=== PATIENT | female | born 1980 ===

== ENCOUNTER 2017-07-03 17:29 | Observation (INO) | payer MEDICAID ==
[2017-07-03 17:29] VITALS: BMI 32.8
[2017-07-03] MEDS ORDERED: HYDROmorphone 0.5 mg/0.5 ml ISec IVP STA (17:42)
[2017-07-03] MEDS ORDERED: Ciprofloxacin 400mg/200ml D5W 400 MG/200 ML BAG IVPB STA (17:43)
--- NOTE | 2017-07-03 17:44 | ED PDOC ---
Lower Extremity Pain/Injury Chief Complaint (Provider): FB in foot Additional Complaint(s): Pt is a 37 yo female, no PMH, presents to ED for FB in left foot. Pt stepped on metal screw, screw in place through boot. Unknown tetanus status. <Dedra Puga - Last Filed: 07/03/17 19:33> <Jasper Nuñez - Last Filed: 07/03/17 20:35> Time Seen by Provider: 07/03/17 17:39 Chief Complaint (Nursing): Lower Extremity Problem/Injury Supervising Attending Note - Attestation: I have personally seen and examined this patient.: Yes I have fully participated in the care of the patient.: Yes I have reviewed all pertinent clinical information, including history, physical exam and plan: Yes - Notes: Notes:: Pt. stepped on serrated nail. Podiatry at bedside. 100mg ketamine given to patient while on quality assurance monitor body, patient signed consent prior. FB removed successfully. Awaiting post-reduction films. <Jasper Nuñez - Last Filed: 07/03/17 20:35> Past Medical History Reviewed: Nursing Documentation, Vital Signs Vital Signs: Last Vital Signs Temp 98.3 F 07/03/17 17:32 Pulse 81 07/03/17 17:32 Resp 20 07/03/17 17:32 BP 121/92 H 07/03/17 17:32 Pulse Ox 99 07/03/17 17:32 - Medical History PMH: Migraine Denies: Chronic Kidney Disease - Surgical History Surgical History: No Surg Hx - Family History Family History: States: Unknown Family Hx - Living Arrangements Living Arrangements: With Family - Social History Current smoker - smoking cessation education provided: No Alcohol: Social Drugs: Denies <Dedra Puga - Last Filed: 07/03/17 19:33> Vital Signs: Last Vital Signs Temp 98.3 F 07/03/17 17:32 Pulse 81 07/03/17 17:32 Resp 20 07/03/17 17:32 BP 121/92 H 07/03/17 17:32 Pulse Ox 99 07/03/17 19:35 <Jasper Nuñez - Last Filed: 07/03/17 20:35> - Home Medications Home Medications: Ambulatory Orders Medication Instructions Recorded Acetaminophen/Butalbital/Caf 1 tab PO PRN PRN 12/23/14 [Fioricet] - Allergies Allergies/Adverse Reactions: Allergies Allergy/AdvReac Type Severity Reaction Status Date / Time No Known Allergies Allergy Verified 05/10/14 20:34 Review of Systems ROS Statement: Except As Marked, All Systems Reviewed And Found Negative Skin: Positive for: Other (FB) <Dedra Puga - Last Filed: 07/03/17 19:33> Physical Exam - Reviewed Nursing Documentation Reviewed: Yes Vital Signs Reviewed: Yes - Physical Exam Appears: Positive for: Well, Non-toxic, No Acute Distress Head Exam: Positive for: ATRAUMATIC, NORMAL INSPECTION, NORMOCEPHALIC Skin: Positive for: Normal Color, Warm, DRY Eye Exam: Positive for: EOMI, Normal appearance, PERRL ENT: Positive for: Normal ENT Inspection Neck: Positive for: Normal, Painless ROM Cardiovascular/Chest: Positive for: Regular Rate, Rhythm Respiratory: Positive for: CNT, Normal Breath Sounds Gastrointestinal/Abdominal: Positive for: Normal Exam, Bowel Sounds, Soft Back: Positive for: Normal Inspection Extremity: Positive for: Other ((+) FB noted, boot in place. unable to be removed by real estate underwriter.) Neurologic/Psych: Positive for: Alert, Oriented <Dedra Puga A - Last Filed: 07/03/17 19:33> - Laboratory Results Result Diagrams: 07/03/17 18:15 07/03/17 18:15 - ECG O2 Sat by Pulse Oximetry: 99 <Dedra Puga - Last Filed: 07/03/17 19:33> - Laboratory Results Result Diagrams: 07/03/17 18:15 07/03/17 18:15 <Jasper Nuñez - Last Filed: 07/03/17 20:35> Medical Decision Making Medical Decision Making: Podiatry consult obtained IV access established and treatment initiated with Dilaudid IV XR obtained, (+) FB identified. podiatry at bedside for procedure, see note Case endorsed to TAMMY Kelly at 1999 pending re-eval. <Dedra Puga A - Last Filed: 07/03/17 19:33> Disposition - Patient ED Disposition Is Patient to be Admitted: Transfer of Care - Disposition Disposition: Transfer of Care Disposition Time: 19:35 - POA Present On Arrival: None <Dedra Puga - Last Filed: 07/03/17 19:33> <Jasper Nuñez - Last Filed: 07/03/17 20:35> - Clinical Impression Clinical Impression: Foreign body in subcutaneous tissue - Disposition Condition: STABLE Forms: [facility] (Malay)
[2017-07-03] MEDS ORDERED: Ciprofloxacin 400mg/200ml D5W 400 MG/200 ML BAG IVPB ONE (18:02)
--- NOTE | 2017-07-03 18:25 | CP.PCM.CON ---
History of Present Illness - History of Present Illness History of Present Illness: Podiatry Consult for Dr. Sargent 37 y/o female seen in the ED for left foot pain secondary to trauma/stepping on a nail. Patient reports that at 5pm today as she was walking home, she stepped on a nail that punctured through her boots. Nail is seen in through boot and intact upon arrival. Denies falling or head trauma. She rates the pain 10/10 and describes the pain as a combination of pain: sharp, stabbing, numbing pain being localized to the left foot. She reports numbness to the left foot. She denies n/v/sob/cp/chills/f. Patient reports last time she ate or drink was at 1PM today. PMH: migraines PSH: hysterectomy in Aug 2016 SH: denies smoking or elicited drug use. socially drinks EtOH Meds: Fioricet ALL: NKDA FH: mother-none, father-none, daughter-DM Past Patient History - Past Medical History & Family History Past Medical History?: Yes - Past Social History Smoking Status: Never Smoked - CARDIAC Hx Cardiac Disorders: No - PULMONARY Hx Respiratory Disorders: No - NEUROLOGICAL Hx Migraine: Yes - RENAL Hx Chronic Kidney Disease: No - ENDOCRINE/METABOLIC Hx Endocrine Disorders: No - HEMATOLOGICAL/ONCOLOGICAL Hx Blood Disorders: No - INTEGUMENTARY Hx Dermatological Problems: No - MUSCULOSKELETAL/RHEUMATOLOGICAL Hx Musculoskeletal Disorders: No - GASTROINTESTINAL Hx Gastrointestinal Disorders: No - GENITOURINARY/GYNECOLOGICAL Hx Genitourinary Disorders: No - PSYCHIATRIC Hx Psychophysiologic Disorder: No - SURGICAL HISTORY Hx Surgeries: Yes Hx Dilation and Curettage: Yes (MAY 2006) - ANESTHESIA Hx Anesthesia: Yes Hx Anesthesia Reactions: No Hx Malignant Hyperthermia: No Meds Home Medications: Home Medication List Medication Instructions Recorded Confirmed Type Ciprofloxacin HCl [Cipro] 500 mg PO Q12 #14 tab 07/04/17 Rx Clindamycin [Cleocin] 300 mg PO Q6 #28 cap 07/04/17 Rx Lactobacillus Acidophilus [Bacid 1 cap PO BID #30 cap 07/04/17 Rx Acidophilus] traMADol [Ultram] 50 mg PO TID PRN #10 tab 07/04/17 Rx Allergies/Adverse Reactions: Allergies Allergy/AdvReac Type Severity Reaction Status Date / Time No Known Allergies Allergy Verified 05/10/14 20:34 - Medications Medications: Current Medications Ciprofloxacin (Cipro 400mg/200ml Dsw) 400 mg in 200 mls @ 200 mls/hr IVPB STAT STA PRN Reason: Protocol Stop: 07/03/17 18:42 Physical Exam - Constitutional Appears: Well, Non-toxic, No Acute Distress - Extremities Exam Additional comments: Able to perform examination secondary to cutting boot partially off Vasc: DP and PT 2/4 bilaterally, CFT <3 seconds x10 digits, localized non pitting edema noted to the LLE Ortho: Severe pain with movement to the L LE Neuro: protective and gross sensation intact Derm: Puncture lesion at the plantar aspect at 1st interspace secondary to screw puncture, measuring approximately 7cm long, L foot. No active bleeding noted upon arrival. - Neurological Exam Neurological exam: Alert, Oriented x3 Results - Vital Signs Recent Vital Signs: Last Vital Signs Temp 98.3 F 07/03/17 17:32 Pulse 81 07/03/17 17:32 Resp 20 07/03/17 17:32 BP 121/92 H 07/03/17 17:32 Pulse Ox 99 07/03/17 17:44 - Labs Result Diagrams: 07/03/17 18:15 07/03/17 18:15 Assessment & Plan - Assessment and Plan (Free Text) Assessment: 37 y/o female seen in the ED for painful left foot puncture lesion secondary to trauma/stepping on a nail with screw intact Plan: Patient examined and evaluated Labs,vitals, chart reviewed Discussed plan in detail with attending Dr. Sargent Tetanus dose given by ED X-rays reviewed- metallic screw noted to the 1st interspace left foot, no bony fracture noted 20 cc of 1:1 .5% marcaine plain and 2% lidocaine plain given in ankle block fashion Nitrous oxide given in ED. Unable to calm patient to remove screw. Decision to give Ketamine for moderate sedation. All risks, benefits, complications and alternative discussed. Patient agrees to sedation and removal of foreign body preceded in ED. Successful removal of screw without complications. Patient tolerated well Flushed with copious amounts of saline/betadine solution Dressed with dsd, abd, kerlix, PACO Post removal additional 7cc of 1:1 .5% marcaine plain and 2% lidocaine plain localized to the puncture X-rays s/p removal of hardware- results read by me- no hardware noted, no acute findings Recommends patient to be admitted for observation given high risk of infection Continue abx while in house: clindamycin and cipro IV PWB in surgical shoe with crutches as needed Patient to followup with Dr. Sargent in podiatry clinic at [facility] as outpatient Can be d/c with Cipro and Clindamycin PO as outpatient Thank you for the consult
[2017-07-03 18:33] LABS: BASO # 0.1 K/uL (0.0-0.2); BASO % 0.6 % (0.0-2.0); EOS # 0.2 K/uL (0.0-0.7); EOS % 1.8 % (0.0-4.0); HEMATOCRIT 30.4 % (34.0-47.0); LYMPH # 2.3 K/uL (1.0-4.3); LYMPH % 27.7 % (20.0-40.0); MEAN CELL VOLUME 72.3 fl (81.0-99.0); MEAN CORPUSCULAR HEMOGLOBIN 22.5 pg (27.0-31.0); MEAN CORPUSCULAR HGB CONC 31.1 g/dL (33.0-37.0); MEAN PLATELET VOLUME 9.9 fl (7.2-11.7); MONO # 0.6 K/uL (0.0-0.8); MONO % 7.3 % (0.0-10.0); NEUT # 5.2 K/uL (1.8-7.0); NEUT % 62.6 % (50.0-75.0); RED CELL DISTRIBUTION WIDTH 16.6 % (11.5-14.5); WHITE BLOOD COUNT 8.4 K/uL (4.8-10.8)
[2017-07-03 18:39] LABS: ALB/GLOB RATIO 1.3 (1.0-2.1); ALKALINE PHOSPHATASE 64 U/L (38-126); ALT/SGPT 32 U/L (9-52); AST/SGOT 18 U/L (14-36); BLOOD UREA NITROGEN 15 mg/dl (7-17); CALCIUM 9.2 mg/dL (8.4-10.2); CARBON DIOXIDE 21 mmol/L (22-30); CHLORIDE 108 mmol/L (98-107); GFR AFRICAN-AMERICAN > 60; GLUCOSE,RANDOM 105 mg/dL (65-105); POTASSIUM 3.7 MMOL/L (3.6-5.0); SODIUM 140 mmol/l (132-148); TOTAL PROTEIN 7.3 G/DL (6.3-8.2)
[2017-07-03 18:43] LABS: BILIRUBIN,TOTAL < 0.1 mg/dl (0.2-1.3)
[2017-07-03] MEDS ORDERED: Bupivacaine 0.5% Inj(30mL) IJ ONE (19:24)
[2017-07-03] MEDS ORDERED: Lidocaine 2% GEL TOP ONE (19:24)
[2017-07-03] MEDS ORDERED: Bupivacaine HCl 0.5% PF (30 ml) Inj ONE (19:26)
[2017-07-03] MEDS ORDERED: Povidone Iodine Topical 10% Sol ONE (19:27)
[2017-07-03] MEDS ORDERED: Lidocaine 2% Inj (20ml) ONE (19:27)
[2017-07-03] MEDS ORDERED: Absorbable Gelatin Sponge Size 12-7 ONE ×2 (19:45→19:47)
[2017-07-03] MEDS ORDERED: Ketamine 50 mg/ml Inj (10 ml) IV STA (20:08)
[2017-07-03] MEDS ORDERED: Sodium Chloride 0.9% 1,000 ML IV STA (22:44)
--- NOTE | 2017-07-03 22:55 | ED PDOC ---
- Laboratory Results Result Diagrams: 07/03/17 18:15 07/03/17 18:15 - ECG O2 Sat by Pulse Oximetry: 99 - Progress ED Course And Treament: Case endorsed to service writer advisor from Vivien MUNOZ pending podiatry consult Patient signed consent for ketamine administration for moderate sedation after unsuccessful attempts at removal Ketamine administered and podiatry able to successfully remove foreign body. Post removal films show no acute findings 22:45 Patient vomiting, IV zofran ordered As per podiatry recommendations, patient to be admitted for observation and IV cipro, and clindamycin Case discussed with Pascual Coleman RADIATION PROTECTION SPECIALIST for placement in observation. Disposition - Clinical Impression Clinical Impression: Foreign body in subcutaneous tissue - POA Present On Arrival: Falls Or Trauma - Disposition Disposition: Hospitalized as Observation Patient Disposition Time: 00:26 Condition: FAIR
[2017-07-03] MEDS ORDERED: Oxycodone/Acetaminophen 5/325 mg Tab PO PRN ×2 (23:42)
[2017-07-04] MEDS ORDERED: Apap-Butalbital-Caffeine 325-50-40mg Tab PO PRN (07:40)
--- NOTE | 2017-07-04 07:47 | CP.PCM.HP ---
History of Present Illness - History of Present Illness History of Present Illness: pt admitted after stepping on screw w/ left foot. this went through shoe and required conscious sedation for removal. per podiatry to be admit for obs for iv anbx. at present describes throbbing. large dsg in place. pod student at bedside. no f/c, n/v/d. no pain radiating up leg. all imaging and bw reviewed. Present on Admission - Present on Admission Any Indicators Present on Admission: No Review of Systems - Integumentary Integumentary: As Per HPI Past Patient History - Past Medical History & Family History Past Medical History?: Yes - Past Social History Smoking Status: Never Smoked - CARDIAC Hx Cardiac Disorders: No - PULMONARY Hx Respiratory Disorders: No - NEUROLOGICAL Hx Neurological Disorder: Yes Hx Migraine: Yes - HEENT Hx HEENT Problems: No - RENAL Hx Chronic Kidney Disease: No - ENDOCRINE/METABOLIC Hx Endocrine Disorders: No - HEMATOLOGICAL/ONCOLOGICAL Hx Blood Disorders: No - INTEGUMENTARY Hx Dermatological Problems: No - MUSCULOSKELETAL/RHEUMATOLOGICAL Hx Musculoskeletal Disorders: No Hx Falls: No - GASTROINTESTINAL Hx Gastrointestinal Disorders: No - GENITOURINARY/GYNECOLOGICAL Hx Genitourinary Disorders: No - PSYCHIATRIC Hx Psychophysiologic Disorder: No - SURGICAL HISTORY Hx Surgeries: Yes Hx Dilation and Curettage: Yes (MAY 2006) Hx Hysterectomy: Yes (Aug 2016) - ANESTHESIA Hx Anesthesia: Yes Hx Anesthesia Reactions: No Hx Malignant Hyperthermia: No Meds Home Medications: Home Medication List Medication Instructions Recorded Confirmed Type Ciprofloxacin HCl [Cipro] 500 mg PO Q12 #14 tab 07/04/17 Rx Clindamycin [Cleocin] 300 mg PO Q6 #28 cap 07/04/17 Rx Lactobacillus Acidophilus [Bacid 1 cap PO BID #30 cap 07/04/17 Rx Acidophilus] traMADol [Ultram] 50 mg PO TID PRN #10 tab 07/04/17 Rx Allergies/Adverse Reactions: Allergies Allergy/AdvReac Type Severity Reaction Status Date / Time No Known Allergies Allergy Verified 05/10/14 20:34 Physical Exam - Constitutional Appears: Well, Non-toxic, No Acute Distress - Head Exam Head Exam: ATRAUMATIC, NORMAL INSPECTION, NORMOCEPHALIC - Eye Exam Eye Exam: EOMI, Normal appearance, PERRL Pupil Exam: NORMAL ACCOMODATION, PERRL - ENT Exam ENT Exam: Mucous Membranes Moist, Normal Exam - Neck Exam Neck exam: Positive for: Normal Inspection - Respiratory Exam Respiratory Exam: Clear to Auscultation Bilateral, NORMAL BREATHING PATTERN - Cardiovascular Exam Cardiovascular Exam: REGULAR RHYTHM, RRR, +S1, +S2 - GI/Abdominal Exam GI & Abdominal Exam: Normal Bowel Sounds, Soft. absent: Tenderness - Extremities Exam Extremities exam: Positive for: full ROM, normal capillary refill, normal inspection, pedal pulses present Additional comments: dsg c/d/i, large and bulky as placed by podiatry - Back Exam Back exam: NORMAL INSPECTION - Neurological Exam Neurological exam: Alert, CN II-XII Intact, Normal Gait, Oriented x3, Reflexes Normal - Psychiatric Exam Psychiatric exam: Normal Affect, Normal Mood - Skin Skin Exam: Dry, Intact, Normal Color, Warm Results - Vital Signs Recent Vital Signs: Last Vital Signs Temp 98.1 F 07/04/17 07:31 Pulse 74 07/04/17 07:31 Resp 18 07/04/17 07:31 BP 123/74 07/04/17 07:31 Pulse Ox 98 07/04/17 07:31 - Labs Result Diagrams: 07/03/17 18:15 07/03/17 18:15 Labs: Laboratory Results - last 24 hr 07/03/17 07/03/17 18:15 18:15 WBC 8.4 RBC 4.20 Hgb 9.4 L Hct 30.4 L MCV 72.3 L MCH 22.5 L MCHC 31.1 L RDW 16.6 H Plt Count 247 MPV 9.9 Neut % (Auto) 62.6 Lymph % (Auto) 27.7 Piatt % (Auto) 7.3 Eos % (Auto) 1.8 Baso % (Auto) 0.6 Neut # 5.2 Lymph # 2.3 Piatt # 0.6 Eos # 0.2 Baso # 0.1 Sodium 140 Potassium 3.7 Chloride 108 H Carbon Dioxide 21 L Anion Gap 15 BUN 15 Creatinine 0.7 Est GFR ( Amer) > 60 Est GFR (Non-Af Amer) > 60 Random Glucose 105 Calcium 9.2 Total Bilirubin < 0.1 L AST 18 ALT 32 Alkaline Phosphatase 64 Total Protein 7.3 Albumin 4.1 Globulin 3.2 Albumin/Globulin Ratio 1.3 Assessment & Plan (1) DVT prophylaxis Assessment and Plan: scd and ae hose ambualtion Status: Acute (2) Foreign body in subcutaneous tissue Assessment and Plan: cipro/clinda bacid podiatry pain control ?? dc audie ortomorrow Status: Acute Decision To Admit - Pt Status Changed To: Hospital Disposition Of: Observation - . Bed Request Type: Med/Surg Admitting Physician: Candace Gibson
--- NOTE | 2017-07-04 08:29 | CP.PCM.PN ---
Subjective - Date & Time of Evaluation Date of Evaluation: 07/04/17 Time of Evaluation: 08:29 - Subjective Subjective: 37 y/o female seen at bedside this morning 1 day s/p foreign body removal from left foot. Pt states she is not having much pain today and wonders when she can go home. Pt says she does not remember much from the emergency room as she was put under sedation. Pt is in no acute distress and is resting comfortably in bed at time of visit. Pt denies F/C/N/V/CP/SOB. Objective - Vital Signs/Intake and Output Vital Signs (last 24 hours): Temp Pulse Resp BP Pulse Ox 98.1 F 74 18 123/74 98 07/04/17 07:31 07/04/17 07:31 07/04/17 07:31 07/04/17 07:31 07/04/17 07:31 - Medications Medications: Current Medications Acetaminophen (Tylenol 325mg Tab) 650 mg PO Q4 PRN PRN Reason: Pain, Mild (1-3) Acetaminophen/Butalbital/Caffeine (Fioricet) 1 tab PO PRN PRN PRN Reason: Headache Ciprofloxacin (Cipro 400mg/200ml Dsw) 400 mg in 200 mls @ 200 mls/hr IVPB Q12 KARINE PRN Reason: Protocol Clindamycin Phosphate 600 mg/ (Sodium Chloride) 54 mls @ 54 mls/hr IVPB Q8 KARINE PRN Reason: Protocol Last Admin: 07/04/17 02:25 Dose: Not Given Ibuprofen (Motrin Tab) 600 mg PO Q6 PRN PRN Reason: Pain, Mild (1-3) Lactobacillus Acidophilus (Bacid Acidophilus) 1 cap PO BID KARINE Morphine Sulfate (Morphine) 2 mg IVP Q4 PRN PRN Reason: Pain, severe (8-10) Ondansetron HCl (Zofran Inj) 4 mg IVP Q6 PRN PRN Reason: Nausea/Vomiting Tramadol HCl (Ultram) 50 mg PO Q6 PRN PRN Reason: Pain, moderate (4-7) Last Admin: 07/04/17 08:13 Dose: 50 mg - Labs Labs: 07/03/17 18:15 07/03/17 18:15 - Constitutional Appears: Well, Non-toxic, No Acute Distress - Extremities Exam Additional comments: Left lower extremity focused examination: Vasc: DP and PT 2/4, CFT <3 seconds x 5 digits, localized non pitting edema noted Neuro: Protective and gross sensation intact Derm: Circular punctate lesion noted to plantar aspect of midfoot, measuring approx 0.5cm in diameter. Wound is approx 0.2cm in depth at this time. No marisol wound erythema, no active drainage, no malodor, no tunneling, no fluctuance, no probe to bone. Ortho: Mild tenderness noted on palpation of plantar foot at site of screw puncture, now removed - Neurological Exam Neurological Exam: Alert, Awake, Oriented x3 - Psychiatric Exam Psychiatric exam: Normal Affect, Normal Mood Assessment and Plan - Assessment and Plan (Free Text) Assessment: 37 y/o female 1 day s/p removal of foreign body from left plantar foot under conscious sedation, secondary to trauma Plan: Pt seen and evaluated at bedside Discussed plan with attending Dr. Sargent Labs and vitals reviewed- afebrile, last WBC 8.4 Continue Cipro and Clinda as abx therapy Continue pain mgmt as per primary team Pt stable for D/C on PO antibiotics Pt to follow up as outpatient in [facility] Podiatry clinic with Dr. Sargent
[2017-07-04] MEDS ORDERED: Sodium Chloride 0.9% 500 ML IV SCH (10:00)
--- NOTE | 2017-07-04 10:45 | RAD ---
PROCEDURE: Left Foot Radiographs. HISTORY: FB COMPARISON: None. FINDINGS: Patient's left shoe/boot obscures fine bony and soft-tissue detail. BONES: No acute fracture or destructive bony lesion identified. JOINTS: Normal. SOFT TISSUES: A metallic screw is identified entering the left midfoot through the sole of the patient's left shoe and terminating in the soft tissues between the mid diaphyses of the 2nd and 1st metatarsal bones. OTHER FINDINGS: None. IMPRESSION: Metallic screw is identified entering the midfoot through the patient's left tissue/blue sole terminating at the soft tissues between the 2nd and 1st metatarsal bones. No fracture, dislocation or subluxation appreciable. Bone and soft tissue detail is obscured by the patient's shoe.
--- NOTE | 2017-07-04 11:00 | RAD ---
PROCEDURE: Left Foot Radiographs. HISTORY: post FB removal COMPARISON: 07/03/2017 at 18:21 FINDINGS: BONES: Normal. No fracture. JOINTS: Normal. SOFT TISSUES: No visulaized radiopaque/visualized foreign body. OTHER FINDINGS: None. IMPRESSION: Status post foreign body removal plantar aspect left foot no residual foreign body identified
[2017-07-04] MEDS: Ciprofloxacin 400mg/200ml D5W 400 MG/200 ML BAG IVPB SCH ×2 (12:45→20:25)
[2017-07-04] MEDS: Lactobacillus Acidophilus 500 MU Cap PO SCH ×2 (12:50→17:59)
[2017-07-04] MEDS ORDERED: HYDROmorphone 0.5 mg/0.5 ml ISec IVP PRN (15:06)
[2017-07-04] MEDS: Sodium Chloride 0.9% 1,000 ML IV SCH (18:49)
[2017-07-04] MEDS: Clindamycin 600mg/50ml NS 600 MG/50 ML BAG IVPB SCH (23:43)
[2017-07-05] MEDS: Sodium Chloride 0.9% 1,000 ML IV SCH ×2 (02:01→12:47)
[2017-07-05] MEDS: Clindamycin 600mg/50ml NS 600 MG/50 ML BAG IVPB SCH (06:11)
[2017-07-05 07:22] VITALS: BP 131/88; PULSE 67; RESP 18; TEMP 98; O2SAT 98
--- NOTE | 2017-07-05 07:36 | CP.PCM.DIS ---
Provider - Provider Date of Admission: 07/03/17 23:32 Attending physician: Candace Gibson MD Time Spent in preparation of Discharge (in minutes): 15 Diagnosis - Discharge Diagnosis (1) DVT prophylaxis Status: Acute (2) Foreign body in subcutaneous tissue Status: Acute Hospital Course - Lab Results Lab Results: Most Recent Lab Values WBC 8.4 K/uL (4.8-10.8) 07/03/17 18:15 RBC 4.20 Mil/uL (3.80-5.20) 07/03/17 18:15 Hgb 9.4 g/dL (12.0-16.0) L 07/03/17 18:15 Hct 30.4 % (34.0-47.0) L 07/03/17 18:15 MCV 72.3 fl (81.0-99.0) L 07/03/17 18:15 MCH 22.5 pg (27.0-31.0) L 07/03/17 18:15 MCHC 31.1 g/dL (33.0-37.0) L 07/03/17 18:15 RDW 16.6 % (11.5-14.5) H 07/03/17 18:15 Plt Count 247 K/uL (130-400) 07/03/17 18:15 MPV 9.9 fl (7.2-11.7) 07/03/17 18:15 Neut % (Auto) 62.6 % (50.0-75.0) 07/03/17 18:15 Lymph % (Auto) 27.7 % (20.0-40.0) 07/03/17 18:15 Haskell % (Auto) 7.3 % (0.0-10.0) 07/03/17 18:15 Eos % (Auto) 1.8 % (0.0-4.0) 07/03/17 18:15 Baso % (Auto) 0.6 % (0.0-2.0) 07/03/17 18:15 Neut # 5.2 K/uL (1.8-7.0) 07/03/17 18:15 Lymph # 2.3 K/uL (1.0-4.3) 07/03/17 18:15 Haskell # 0.6 K/uL (0.0-0.8) 07/03/17 18:15 Eos # 0.2 K/uL (0.0-0.7) 07/03/17 18:15 Baso # 0.1 K/uL (0.0-0.2) 07/03/17 18:15 Sodium 140 mmol/l (132-148) 07/03/17 18:15 Potassium 3.7 MMOL/L (3.6-5.0) 07/03/17 18:15 Chloride 108 mmol/L (98-107) H 07/03/17 18:15 Carbon Dioxide 21 mmol/L (22-30) L 07/03/17 18:15 Anion Gap 15 (10-20) 07/03/17 18:15 BUN 15 mg/dl (7-17) 07/03/17 18:15 Creatinine 0.7 mg/dl (0.7-1.2) 07/03/17 18:15 Est GFR ( Amer) > 60 07/03/17 18:15 Est GFR (Non-Af Amer) > 60 07/03/17 18:15 Random Glucose 105 mg/dL (65-105) 07/03/17 18:15 Calcium 9.2 mg/dL (8.4-10.2) 07/03/17 18:15 Total Bilirubin < 0.1 mg/dl (0.2-1.3) L 07/03/17 18:15 AST 18 U/L (14-36) 07/03/17 18:15 ALT 32 U/L (9-52) 07/03/17 18:15 Alkaline Phosphatase 64 U/L (38-126) 07/03/17 18:15 Total Protein 7.3 G/DL (6.3-8.2) 07/03/17 18:15 Albumin 4.1 g/dL (3.5-5.0) 07/03/17 18:15 Globulin 3.2 gm/dL (2.2-3.9) 07/03/17 18:15 Albumin/Globulin Ratio 1.3 (1.0-2.1) 07/03/17 18:15 Discharge Exam - Head Exam Head Exam: ATRAUMATIC, NORMAL INSPECTION, NORMOCEPHALIC - Eye Exam Eye Exam: EOMI, Normal appearance, PERRL Pupil Exam: NORMAL ACCOMODATION, PERRL - Respiratory Exam Respiratory Exam: Clear to PA & Lateral, NORMAL BREATHING PATTERN, UNREMARKABLE - Cardiovascular Exam Cardiovascular Exam: REGULAR RHYTHM, RRR, +S1, +S2 - GI/Abdominal Exam GI & Abdominal Exam: Normal Bowel Sounds, Soft, Unremarkable - Extremities Exam Extremities exam: full ROM, normal capillary refill, normal inspection, pedal pulses present Additional comments: dsg to foot c/d/i - Neurological Exam Neurological exam: Alert, CN II-XII Intact, Normal Gait, Oriented x3, Reflexes Normal - Psychiatric Exam Psychiatric exam: Normal Affect, Normal Mood - Skin Skin Exam: Dry, Intact, Normal Color, Warm Discharge Plan - Discharge Medications Prescriptions: Ciprofloxacin HCl [Cipro] 500 mg PO Q12 #14 tab Clindamycin [Cleocin] 300 mg PO Q6 #28 cap Lactobacillus Acidophilus [Bacid Acidophilus] 1 cap PO BID #30 cap traMADol [Ultram] 50 mg PO TID PRN #10 tab PRN Reason: pain 6-10 - Follow Up Plan Condition: FAIR Disposition: HOME/ ROUTINE Instructions: Puncture Wound (DC) Additional Instructions: follow up with [facility] as per 's instructions. follow up with [facility] podiatry clinic pt feeling better today, more appetite and less headache/foot pain. wishes to be dc today. no f/c, n/v/d. no other complaitns. final dx-puncture wound, migraine Referrals: Candace Gibson MD [Staff Provider] - Jean Carlos Sargent DPM [Medical Doctor] -
[2017-07-05] MEDS: Lactobacillus Acidophilus 500 MU Cap PO SCH (08:39)
[2017-07-05] MEDS: Ciprofloxacin 400mg/200ml D5W 400 MG/200 ML BAG IVPB SCH (08:39)
== END 2017-07-05 14:25 | disposition home or self-care (01) ==
LOC: H.ER 17:29 → H.ERHOLD 23:32 → H.MEDSURG1 07-04 03:25
PROVIDERS: ADMIT Family Medicine; ATTEND Family Medicine
DX: S90.852A Superficial foreign body, left foot, initial encounter (principal); S91.332A Puncture wound without foreign body, left foot, initial encounter; W45.0XXA Nail entering through skin, initial encounter; W45.8XXA Other foreign body or object entering through skin, initial encounter; Z90.710 Acquired absence of both cervix and uterus; G43.909 Migraine, unspecified, not intractable, without status migrainosus; M79.672 Pain in left foot; R20.0 Anesthesia of skin; Z23 Encounter for immunization
CPT/HCPCS: 73630; 80053; 81025; 85025; 90471; 90715; 96374; 97116; 97162; 97530; 99283; G0378; G8978; G8979; J0744; J1170; J1885; J2405; J7040

== ENCOUNTER 2018-07-07 13:21 | Emergency (ER) | payer MEDICAID ==
[2018-07-07 13:21] VITALS: BMI 32.8
--- NOTE | 2018-07-07 15:58 | ED PDOC ---
Upper Extremity Pain/Injury Time Seen by Provider: 07/07/18 15:03 Chief Complaint (Nursing): Finger,Hand,&Wrist Chief Complaint (Provider): Right Hand Injury History Per: Patient History/Exam Limitations: no limitations Onset/Duration Of Symptoms: Days (x1) Additional Complaint(s): Marli Duarte, a 38 year old female with no significant past medical history, who presents to the ED for an evaluation of right second digit injury. Patient states she slammed the car door on her finger yesterday and took ibuprofen with no relief of pain. She is right hand dominant and reports worsening pain today, described as throbbing, which prompted ED visit. Patient denies any other injury or loss of sensation. No further medical complaints. PMD: [place] MCINTYRE Past Medical History Reviewed: Historical Data, Nursing Documentation, Vital Signs Vital Signs: Last Vital Signs Temp 98.2 F 07/07/18 13:55 Pulse 65 07/07/18 13:55 Resp 16 07/07/18 13:55 BP 133/92 H 07/07/18 13:55 Pulse Ox 100 07/07/18 13:55 - Medical History PMH: Migraine - Surgical History Other surgeries: hysterectomy - Family History Family History: States: Unknown Family Hx - Home Medications Home Medications: Ambulatory Orders Medication Instructions Recorded RX: Acetaminophen/Butalbital/Caf 1 tab PO PRN PRN 12/23/14 [Fioricet] Ciprofloxacin HCl [Cipro] 500 mg PO Q12 #14 tab 07/04/17 Lactobacillus Acidophilus [Bacid 1 cap PO BID #30 cap 07/04/17 Acidophilus] RX: Clindamycin [Cleocin] 300 mg PO Q6 #28 cap 07/04/17 RX: Ibuprofen [Motrin Tab] 600 mg PO Q6 07/04/17 RX: traMADol [Ultram] 50 mg PO TID PRN #10 tab 07/04/17 Acetaminophen [Acetaminophen 8 650 mg PO Q8 PRN #21 tablet.er 07/07/18 Hour] RX: Naproxen 500 mg PO BID PRN #20 tab 07/07/18 - Allergies Allergies/Adverse Reactions: Allergies Allergy/AdvReac Type Severity Reaction Status Date / Time No Known Allergies Allergy Verified 07/07/18 13:55 Review of Systems ROS Statement: Except As Marked, All Systems Reviewed And Found Negative Musculoskeletal: Positive for: Hand Pain (right finger pain) Physical Exam - Reviewed Nursing Documentation Reviewed: Yes Vital Signs Reviewed: Yes - Physical Exam Comments: GENERAL APPEARANCE: Patient is awake, alert, oriented x 3, in no acute distress. SKIN: Warm, dry; (-) cyanosis. NECK: Supple ENT: Mucus membranes moist. CHEST AND RESPIRATORY: (-) rales, (-) rhonchi, (-) wheezes; breath sounds equal bilaterally. HEART AND CARDIOVASCULAR: (-) irregularity Right second digit: decreased flexion of DIP and PIP secondary to pain (+) diffuse tenderness to distal half of digit, (+) mild swelling to distal phalanx, (+) faint area ecchymosis to mid nail. (-) skin break (-) palpable deformity (- ) erythema (-) warmth (-) distal neurovascular deficit. Elbow, wrist, hand, and remainder of digits: (-) tenderness. Sensation intact throughout. NEURO AND PSYCH: Mental status as above. Gait: steady. Speech: clear. (-) facial asymmetry - ECG O2 Sat by Pulse Oximetry: 100 (RA) Pulse Ox Interpretation: Normal Medical Decision Making Medical Decision Making: Time: 15:00 Initial Impression: Initial Plan: --Toradol 30 mg IM --Right hand radiology XR --Re-evaluation 1700 XR reviewed, radiology report follows PROCEDURE: Right Hand Radiographs. HISTORY: r/o fracture s/p trauma COMPARISON: None. FINDINGS: BONES: Fracture distal tuft 2nd digit. JOINTS: Normal. No osteoarthritic changes. SOFT TISSUES: Soft tissue swelling attests to the acuity of the fracture. OTHER FINDINGS: None. IMPRESSION: Distal tuft fracture 2nd digit. Patient placed in an aluminum finger splint by stainless steel finisher. Placement and application verified by Corinna MUNOZ. NV intact after placement. On exam, patient remains AAOx3, in no acute distress. Lungs clear to auscultation, cardiac RRR, repeat neuro exam shows no focal findings. Vitals stable. Lab/Diagnostic results d/w the patient in great detail. Diagnosis of acute finger pain, tuft fracture of right second digit d/w the patient. Based on history, exam and diagnostic results, plan will be for outpatient follow upwith PMD/ortho/hand. Patient instructed to follow-up with pmd / referral provided / the clinic in 1- 2 days without fail. Advised to take medication as prescribed. Return to the emergency room at any time for any new or worsening symptoms. Patient states she fully agrees with and understands discharge instructions. States that she agrees with the plan and disposition. Verbalized and repeated discharge instructions and plan. I have given the patient opportunity to ask any additional questions. Scribe Attestation: Documented by Jannie Tuttle, acting as a scribe for Nora Weinstein PA-C. Provider Scribe Attestation: All medical record entries made by the Scribe were at my direction and personally dictated by me. I have reviewed the chart and agree that the record accurately reflects my personal performance of the history, physical exam, medical decision making, and the department course for this patient. I have also personally directed, reviewed, and agree with the discharge instructions and disposition. Disposition - Clinical Impression Clinical Impression: Closed fracture of tuft of distal phalanx of finger - Patient ED Disposition Is Patient to be Admitted: No Counseled Patient/Family Regarding: Studies Performed, Diagnosis, Need For Followup, Rx Given - Disposition Referrals: Pascual Coleman, MIRA, [facility] ADMINISTRATOR [Family Provider] - Umer North MD [Staff Provider] - Priyank Reyes MD [Staff Provider] - Disposition: Routine/Home Disposition Time: 17:10 Condition: IMPROVED Additional Instructions: KEEP ALUMINUM FINGER SPLINT IN PLACE UNTIL FOLLOW UP VISIT. The emergency medical care you received today was directed at your acute symptoms. If you were prescribed any medication, please fill it and take as directed. It may take several days for your symptoms to resolve. Return to the Emergency Department if your symptoms worsen, do not improve, or if you have any other problems. Please contact your doctor in 2 days for re-evaluation and follow up / or call one of the physicians/clinics you have been referred to that are listed on the Patient Visit Information form that is included in your discharge packet. Bring any paperwork you were given at discharge with you along with any medications you are taking to your follow up visit. Our treatment cannot replace ongoing medical care by a primary care provider (PCP) outside of the emergency de partment. Prescriptions: Acetaminophen [Acetaminophen 8 Hour] 650 mg PO Q8 PRN #21 tablet.er PRN Reason: Pain, Moderate (4-7) RX: Naproxen 500 mg PO BID PRN #20 tab PRN Reason: Pain, Moderate (4-7) Instructions: Finger Fracture, Common Finger Injuries Forms: [facility] (Moroccan) Print Language: ALBANIAN - POA Present On Arrival: Falls Or Trauma
--- NOTE | 2018-07-07 17:03 | RAD ---
PROCEDURE: Right Hand Radiographs. HISTORY: r/o fracture s/p trauma COMPARISON: None. FINDINGS: BONES: Fracture distal tuft 2nd digit. JOINTS: Normal. No osteoarthritic changes. SOFT TISSUES: Soft tissue swelling attests to the acuity of the fracture. OTHER FINDINGS: None. IMPRESSION: Distal tuft fracture 2nd digit.
[2018-07-08 00:23] VITALS: BP 131/81; PULSE 81; RESP 16; TEMP 98.1
[2018-07-09 14:12] VITALS: O2SAT 100
== END 2018-07-07 17:47 | disposition home or self-care (01) ==
LOC: H.ER 13:21
DX: S62.660A Nondisplaced fracture of distal phalanx of right index finger, initial encounter for closed fracture (principal); W23.0XXA Caught, crushed, jammed, or pinched between moving objects, initial encounter; Y92.89 Other specified places as the place of occurrence of the external cause
CPT/HCPCS: 29130; 73130; 96372; 99284; J1885